=== PATIENT | female | born 1940 | race African-American/Black ===

== ENCOUNTER 2022-03-05 15:21 | Inpatient (IN) | payer OTHER ==
[~2022-03-05] VITALS: Ht 165.1 cm; Wt 64.2 kg
[~2022-03-05 15:21] MED LIST: ETOMIDATE 2MG/ML 10ML VIAL IV ONE; SUCCINYLCHOLINE CHLORIDE 200MG/10ML IV ONE
[2022-03-05 16:36] LABS: HEMATOCRIT. 31.4 % (36.0-48.0); HEMOGLOBIN. 10.2 g/dL (12.0-16.0); MEAN CORPUSCULAR HEMOGLOBIN 27.9 pg (28.0-32.0); MEAN CORPUSCULAR VOLUME 86.3 fL (81.0-99.0); MEAN PLATELET VOLUME 7.7 fl (7.4-10.4); PLATELET 436 x1000/uL (130-400); RED BLOOD CELL COUNT 3.64 mill/uL (4.2-5.4); RED CELL DISTRIBUTION WIDTH 17.1 % (11.6-14.6)
[2022-03-05 16:45] LABS: INR 0.9; PROTHROMBIN TIME 10.1 sec (9.6-11.0)
[2022-03-05 16:47] LABS: CHLORIDE 93 mEq/L (98-107)
[2022-03-05] MEDS ORDERED: MIDAZOLAM HCL 2 MG/2 ML VIAL IV ONE ×2 (17:15→17:30)
[2022-03-05] MEDS ORDERED: AZITHROMYCIN 500 MG in DEXT 5% WATER 250 ML IV SCH (17:15)
[2022-03-05] MEDS ORDERED: SODIUM CHLORIDE 0.9% 1,000 ML IV ONE (17:15)
[2022-03-05] MEDS ORDERED: CEFTRIAXONE 1 G PREMIX 50 ML IV ONE (17:15)
[2022-03-05] MEDS ORDERED: LEVETIRACETAM 1000MG PREMIX 100 ML IV ONE (17:15)
[2022-03-05] MEDS ORDERED: KCL 20MEQ/100ML PREMIX 100 ML IV ONE (17:15)
[2022-03-05 17:24] LABS: PLATELET ESTIMATE INCREASED
[2022-03-05] MEDS ORDERED: SODIUM CHLORIDE 3% 150 ML IV ONE (17:45)
[2022-03-05] MEDS ORDERED: FENTANYL 2500MCG/250ML PMX 250 ML IV PRN (18:15)
[2022-03-05] MEDS ORDERED: MIDAZOLAM 100MG/100ML PMX 100 ML IV PRN (18:15)
[2022-03-05 19:28] LABS: BG BASE EXCESS -2.6 mmol/L (-2.0-2.0); BG CARBOXYHEMOGLOBIN 0.3 % (0.5-1.5); BG DEOXYHEMOGLOBIN 0.2 % (0.0-5.0); BG FRACTION INSPIRED OXYGEN 100; BG HCO3 ACT 23.7 mmol/L (22.0-26.0); BG METHEMOGLOBIN 0.1 % (0.0-1.5); BG OXYGEN SATURATION 99.8 % (92.0-98.5); BG OXYHEMOGLOBIN 99.4 % (94.0-97.0); BG PCO2 48.2 mmHg (35.0-45.0); BG PO2 437.2 mmHg (75.0-100.0); BG SAMPLE SITE RIGHT RADIAL; BG TOTAL HEMOGLOBIN 10.2 g/dL (12.0-18.0); BG VENT MODE VENT - AC
[2022-03-05 20:46] LABS: CLARITY URINE CLEAR (CLEAR); COLOR URINE YELLOW (YELLOW); KETONES URINE TRACE (NEGATIVE); LEUKOCYTE ESTERASE URINE 2+ (NEGATIVE); NITRITE URINE NEGATIVE (NEGATIVE); OCCULT BLOOD URINE 1+ (NEGATIVE); PROTEIN URINE 2+ (NEGATIVE); SPECIFIC GRAVITY URINE 1.011 (1.005-1.030); UROBILINOGEN URINE 0.2 E.U./dL (0.2-1.0)
[2022-03-05] MEDS ORDERED: ONDANSETRON HCL 4MG/2ML INJ IV PRN (22:00)
[2022-03-05] MEDS ORDERED: IPRATROPIUM/ALBUTEROL 0.5-3(2.5)MG/3ML NEB HHN PRN (22:00)
[2022-03-05] MEDS ORDERED: VANCOMYCIN 1G PREMIX 200 ML IV NR (23:00)
[2022-03-05] MEDS: SODIUM CHLORIDE 0.9% 1,000 ML IV SCH (23:00)
[2022-03-05 23:07] LABS: CHLORIDE 103 mEq/L (98-107)
[2022-03-05 23:17] LABS: CREATINE KINASE 53 IU/L (26-192); CREATINE KINASE MB FRACTION < 1.0 ng/mL (0.5-3.6)
[2022-03-06] VITALS (47 sets, daily range): BP systolic 107–186; BP diastolic 50–97
[2022-03-06] MEDS: PIPERACILLIN/TAZOBACTAM 3.375 G in DEXTROSE 5% WATER 50 ML IV SCH ×5 (02:43→23:09)
[2022-03-06] MEDS ORDERED: LEVETIRACETAM 500MG PREMIX 100 ML IV SCH (09:00)
[2022-03-06] MEDS: PANTOPRAZOLE SODIUM 40 MG/VIAL IV SCH (09:39)
[2022-03-06] MEDS: HEPARIN 5000 UNITS/ML VIAL SUBCUT SCH ×2 (09:41→21:31)
[2022-03-06] MEDS ORDERED: POTASSIUM CHLORIDE INJ 40 MEQ in DEXT 5% WATER 250 ML IV ONE (10:30)
[2022-03-06] MEDS ORDERED: KCL 20MEQ/100ML X 2 FOR TOTAL KCL 40MEQ/200ML IV SCH (11:00)
[2022-03-06 11:23] LABS: BG BASE EXCESS -0.4 mmol/L (-2.0-2.0); BG CARBOXYHEMOGLOBIN 0.5 % (0.5-1.5); BG FRACTION INSPIRED OXYGEN 40; BG HCO3 ACT 23.9 mmol/L (22.0-26.0); BG METHEMOGLOBIN 0.1 % (0.0-1.5); BG OXYHEMOGLOBIN 98.4 % (94.0-97.0); BG PCO2 37.1 mmHg (35.0-45.0); BG PH 7.426 (7.350-7.450); BG PO2 142.9 mmHg (75.0-100.0); BG SAMPLE SITE RIGHT RADIAL; BG TOTAL HEMOGLOBIN 8.9 g/dL (12.0-18.0); BG VENT MODE VENT - AC
[2022-03-06 11:43] LABS: *AMPHETAMINES SCREEN URINE NEGATIVE (NEGATIVE); *BARBITURATES SCREEN URINE PRESUMTIVE POSITIVE (NEGATIVE); *BENZODIAZEPINES SCREEN URINE PRESUMTIVE POSITIVE (NEGATIVE); *COCAINE SCREEN URINE NEGATIVE (NEGATIVE); CANNABINOID URINE SCREEN NEGATIVE (NEGATIVE); METHADONE URINE SCREEN NEGATIVE (NEGATIVE); OPIATES URINE SCREEN NEGATIVE (NEGATIVE); PHENCYCLIDINE URINE SCREEN NEGATIVE (NEGATIVE)
[2022-03-06] MEDS ORDERED: VANCOMYCIN 500MG PREMIX 100 ML IV SCH (12:00)
[2022-03-06] MEDS: HYDRALAZINE 20MG/ML VIAL IV PRN (13:21)
[2022-03-06] MEDS ORDERED: FENTANYL 2500MCG/250ML PMX 250 ML IV PRN (13:30)
[2022-03-06] MEDS: VANCOMYCIN 500MG PREMIX 100 ML IV SCH (14:39)
[2022-03-06] MEDS: KCL 20MEQ/100ML X 2 FOR TOTAL KCL 40MEQ/200ML IV SCH ×2 (14:40→17:46)
[2022-03-06] MEDS: MIDAZOLAM 100MG/100ML PMX 100 ML IV PRN (15:26)
[2022-03-06 16:58] LABS: CREATINE KINASE MB FRACTION 1.9 ng/mL (0.5-3.6)
[2022-03-06 17:07] LABS: HEMATOCRIT. 28.9 % (36.0-48.0); HEMOGLOBIN. 9.1 g/dL (12.0-16.0); MEAN CORPUSCULAR HEMOGLOBIN 27.7 pg (28.0-32.0); MEAN CORPUSCULAR VOLUME 87.8 fL (81.0-99.0); MEAN PLATELET VOLUME 7.8 fl (7.4-10.4); PLATELET 342 x1000/uL (130-400); RED BLOOD CELL COUNT 3.29 mill/uL (4.2-5.4); RED CELL DISTRIBUTION WIDTH 17.7 % (11.6-14.6)
[2022-03-06 17:10] LABS: PHOSPHORUS 1.8 mg/dL (2.5-4.9)
[2022-03-06 17:49] LABS: FOLIC ACID (FOLATE) SERUM > 20.00 ng/mL (>5.38)
[2022-03-06] MEDS: IPRATROPIUM/ALBUTEROL 0.5-3(2.5)MG/3ML NEB HHN SCH ×2 (18:15→21:00)
[2022-03-06 20:43] LABS: PLATELET ESTIMATE NORMAL
[2022-03-06] MEDS: LEVETIRACETAM 500MG PREMIX 100 ML IV SCH (21:30)
[2022-03-06] MEDS: SODIUM CHLORIDE 0.9% 1,000 ML IV SCH (21:45)
[2022-03-06] MEDS ORDERED: IOHEXOL-350 100 ML BOTTLE ONE (23:29)
[2022-03-07] VITALS (74 sets, daily range): BP systolic 111–182; BP diastolic 55–132
[2022-03-07] MEDS: IPRATROPIUM/ALBUTEROL 0.5-3(2.5)MG/3ML NEB HHN SCH ×6 (00:31→20:44)
[2022-03-07] MEDS: VANCOMYCIN 500MG PREMIX 100 ML IV SCH ×2 (02:41→14:11)
[2022-03-07 05:03] LABS: HEMATOCRIT. 27.8 % (36.0-48.0); HEMOGLOBIN. 8.7 g/dL (12.0-16.0); MEAN CORPUSCULAR HEMOGLOBIN 28.2 pg (28.0-32.0); MEAN CORPUSCULAR VOLUME 89.9 fL (81.0-99.0); MEAN PLATELET VOLUME 7.6 fl (7.4-10.4); PLATELET 324 x1000/uL (130-400); RED BLOOD CELL COUNT 3.09 mill/uL (4.2-5.4); RED CELL DISTRIBUTION WIDTH 17.6 % (11.6-14.6)
[2022-03-07 05:19] LABS: CHLORIDE 107 mEq/L (98-107)
[2022-03-07 05:42] LABS: VITAMIN B12 SERUM 861 pg/mL (211-911)
[2022-03-07] MEDS: PIPERACILLIN/TAZOBACTAM 3.375 G in DEXTROSE 5% WATER 50 ML IV SCH ×3 (06:32→22:31)
[2022-03-07] MEDS ORDERED: LIDOCAINE HCL/PF 1% 10 MG/ML 5ML VIAL ONE (08:32)
[2022-03-07] MEDS: MIDAZOLAM 100MG/100ML PMX 100 ML IV PRN (08:36)
[2022-03-07] MEDS: LEVETIRACETAM 500MG PREMIX 100 ML IV SCH ×2 (09:21→21:27)
[2022-03-07] MEDS: PANTOPRAZOLE SODIUM 40 MG/VIAL IV SCH (09:21)
[2022-03-07] MEDS: HEPARIN 5000 UNITS/ML VIAL SUBCUT SCH ×2 (09:22→21:27)
[2022-03-07 09:24] LABS: BG BASE EXCESS -1.7 mmol/L (-2.0-2.0); BG CARBOXYHEMOGLOBIN 0.5 % (0.5-1.5); BG DEOXYHEMOGLOBIN 0.7 % (0.0-5.0); BG FRACTION INSPIRED OXYGEN 40; BG HCO3 ACT 22.3 mmol/L (22.0-26.0); BG METHEMOGLOBIN 0.3 % (0.0-1.5); BG OXYGEN SATURATION 99.3 % (92.0-98.5); BG OXYHEMOGLOBIN 98.5 % (94.0-97.0); BG PCO2 34.5 mmHg (35.0-45.0); BG PH 7.428 (7.350-7.450); BG PO2 156.9 mmHg (75.0-100.0); BG SAMPLE SITE RIGHT RADIAL; BG TOTAL HEMOGLOBIN 9.5 g/dL (12.0-18.0); BG VENT MODE VENT - AC
[2022-03-07 09:47] LABS: PLATELET ESTIMATE NORMAL
[2022-03-07] MEDS: HYDRALAZINE 20MG/ML VIAL IV PRN (10:42)
[2022-03-07] MEDS: AMLODIPINE 5MG TABLET PO SCH (11:42)
[2022-03-07] MEDS ORDERED: LABETALOL 5MG/ML SYR 20 MG/4 ML SYRINGE IV PRN (18:45)
[2022-03-07] MEDS: AZITHROMYCIN 250 MG in DEXT 5% WATER 250 ML IV SCH (18:48)
[2022-03-07] MEDS: SODIUM CHLORIDE 0.9% 1,000 ML IV SCH (22:31)
[2022-03-08] VITALS (75 sets, daily range): BP systolic 110–179; BP diastolic 30–135
[2022-03-08] MEDS: IPRATROPIUM/ALBUTEROL 0.5-3(2.5)MG/3ML NEB HHN SCH ×6 (00:57→20:25)
[2022-03-08] MEDS: VANCOMYCIN 500MG PREMIX 100 ML IV SCH ×2 (02:06→14:42)
[2022-03-08 05:00] LABS: HEMATOCRIT. 25.2 % (36.0-48.0); MEAN CORPUSCULAR HEMOGLOBIN 27.8 pg (28.0-32.0); MEAN CORPUSCULAR VOLUME 87.2 fL (81.0-99.0); MEAN PLATELET VOLUME 7.5 fl (7.4-10.4); PLATELET 332 x1000/uL (130-400); RED BLOOD CELL COUNT 2.89 mill/uL (4.2-5.4); RED CELL DISTRIBUTION WIDTH 17.4 % (11.6-14.6)
[2022-03-08 05:08] LABS: CHLORIDE 110 mEq/L (98-107)
[2022-03-08] MEDS: PIPERACILLIN/TAZOBACTAM 3.375 G in DEXTROSE 5% WATER 50 ML IV SCH ×3 (05:34→21:20)
[2022-03-08] MEDS: HEPARIN 5000 UNITS/ML VIAL SUBCUT SCH ×2 (09:16→21:20)
[2022-03-08] MEDS: AMLODIPINE 5MG TABLET PO SCH (09:16)
[2022-03-08] MEDS: PANTOPRAZOLE SODIUM 40 MG/VIAL IV SCH (09:16)
[2022-03-08] MEDS: LEVETIRACETAM 500MG PREMIX 100 ML IV SCH ×2 (09:17→21:20)
[2022-03-08 09:53] LABS: PLATELET ESTIMATE NORMAL
[2022-03-08] MEDS: MIDAZOLAM 100MG/100ML PMX 100 ML IV PRN (13:32)
[2022-03-08] MEDS ORDERED: POTASSIUM CHLORIDE 20MEQ/PACKET PO NR (14:45)
[2022-03-08] MEDS: AZITHROMYCIN 250 MG in DEXT 5% WATER 250 ML IV SCH (18:49)
[2022-03-08] MEDS: HYDRALAZINE 20MG/ML VIAL IV PRN (19:02)
[2022-03-08] MEDS ORDERED: AMLODIPINE 5MG TABLET NG SCH (21:00)
[2022-03-08] MEDS: SODIUM CHLORIDE 0.9% 1,000 ML IV SCH (21:19)
[2022-03-09] VITALS (34 sets, daily range): BP systolic 119–174; BP diastolic 60–101
[2022-03-09] MEDS: IPRATROPIUM/ALBUTEROL 0.5-3(2.5)MG/3ML NEB HHN SCH ×2 (00:29→04:04)
[2022-03-09] MEDS: HYDRALAZINE 20MG/ML VIAL IV PRN (05:12)
[2022-03-09] MEDS: PIPERACILLIN/TAZOBACTAM 3.375 G in DEXTROSE 5% WATER 50 ML IV SCH (05:12)
[2022-03-09 05:55] LABS: BASOPHILS % 0.4 % (0.0-2.0); EOSINOPHILS % 0.8 % (0.0-5.0); HEMATOCRIT. 25.7 % (36.0-48.0); HEMOGLOBIN. 8.3 g/dL (12.0-16.0); LYMPHOCYTES % 7.9 % (20.0-50.0); MEAN CORPUSCULAR HEMOGLOBIN 28.5 pg (28.0-32.0); MEAN CORPUSCULAR VOLUME 87.9 fL (81.0-99.0); MEAN PLATELET VOLUME 7.8 fl (7.4-10.4); NEUTROPHILS % 85.9 % (40.0-76.0); PLATELET 337 x1000/uL (130-400); RED BLOOD CELL COUNT 2.92 mill/uL (4.2-5.4); RED CELL DISTRIBUTION WIDTH 17.3 % (11.6-14.6)
[2022-03-09 06:45] LABS: CHLORIDE 113 mEq/L (98-107)
[2022-03-09 08:19] LABS: BG CARBOXYHEMOGLOBIN 0.7 % (0.5-1.5); BG DEOXYHEMOGLOBIN 1.1 % (0.0-5.0); BG HCO3 ACT 24.1 mmol/L (22.0-26.0); BG METHEMOGLOBIN 0.1 % (0.0-1.5); BG OXYGEN SATURATION 98.9 % (92.0-98.5); BG OXYHEMOGLOBIN 98.1 % (94.0-97.0); BG PCO2 36.6 mmHg (35.0-45.0); BG PH 7.436 (7.350-7.450); BG PO2 129.8 mmHg (75.0-100.0); BG SAMPLE SITE RIGHT BRACHIAL; BG TOTAL HEMOGLOBIN 8.5 g/dL (12.0-18.0); BG VENT MODE VENT - AC
== END 2022-03-09 08:30 | disposition short-term general hospital (02) | DRG 871 ==
LOC: ER 15:21 → EDBEDREQSVC 19:18 → MICUNO 20:59 → EDBEDREQTM 21:15 → EDBEDREQ 21:15 → ENRESERV 03-06 10:13
PROVIDERS: ADMIT Internal Medicine; ATTEND Internal Medicine
PROC: 5A1945Z Respiratory Ventilation, 24-96 Consecutive Hours (ICD-10-PCS; principal; 2022-03-05)
PROC: 0BH17EZ Insertion of Endotracheal Airway into Trachea, Via Natural or Artificial Opening (ICD-10-PCS; 2022-03-05)
PROC: 02HV33Z Insertion of Infusion Device into Superior Vena Cava, Percutaneous Approach (ICD-10-PCS; 2022-03-07)
PROC: B548ZZA Ultrasonography of Superior Vena Cava, Guidance (ICD-10-PCS; 2022-03-07)
DX: A40.1 Sepsis due to streptococcus, group B (principal); G92.8 Other toxic encephalopathy; J96.00 Acute respiratory failure, unspecified whether with hypoxia or hypercapnia; J18.9 Pneumonia, unspecified organism; E44.0 Moderate protein-calorie malnutrition; E87.0 Hyperosmolality and hypernatremia; J44.0 Chronic obstructive pulmonary disease with (acute) lower respiratory infection; N39.0 Urinary tract infection, site not specified; E87.1 Hypo-osmolality and hyponatremia; Z99.11 Dependence on respirator [ventilator] status; I50.30 Unspecified diastolic (congestive) heart failure; D64.9 Anemia, unspecified; E87.6 Hypokalemia; I71.2 Thoracic aortic aneurysm, without rupture; G40.901 Epilepsy, unspecified, not intractable, with status epilepticus; I11.0 Hypertensive heart disease with heart failure; Z20.822 Contact with and (suspected) exposure to COVID-19; R77.8 Other specified abnormalities of plasma proteins; I70.90 Unspecified atherosclerosis; M19.90 Unspecified osteoarthritis, unspecified site; E78.5 Hyperlipidemia, unspecified; F17.210 Nicotine dependence, cigarettes, uncomplicated; Z85.3 Personal history of malignant neoplasm of breast; Z68.23 Body mass index [BMI] 23.0-23.9, adult; Z79.899 Other long term (current) drug therapy; Z90.11 Acquired absence of right breast and nipple
CPT/HCPCS: 31500; 36415; 36573; 36600; 70551; 71045; 71275; 80048; 80053; 80061; 80202; 80305; 81003; 82375; 82378; 82436; 82550; 82553; 82570; 82607; 82746; 82805; 82962; 83036; 83605; 83735; 83880; 83930; 83935; 84100; 84133; 84145; 84156; 84300; 84443; 84484; 85025; 86592; 86850; 86900; 87077; 87426; 93005; 93306; 93970; 94002; 94003; 94640; 95816; 99291; C1725; C9113; C9803; J0330; J0360; J0456; J0696; J1644; J1953; J2250; J2543; J3010; J3370; J3480; J3490; J7030; J7060; Q9967; A5200